=== PATIENT | female | born 1965 | race Caucasian/White ===

== ENCOUNTER 2019-02-07 15:54 | Observation (INO) | payer OTHER ==
[2019-02-07 17:34] LABS: Absolute Neutrophil Ct (ANC) 6.73 (1.4-6.9); BASOPHIL % 0.4 % (0.0-0.4); Basophil (Absolute #) 0.04 (0-0.4); Eosinophil (Absolute #) 0.29 (0-0.5); Hematocrit 46.2 % (35-47); Hemoglobin 15.3 gm/dl (12.0-16.0); Lymphocytes % 19.5 % (24.0-44.0); Mean Cell Volume 96.9 fl (78-100); Mean Corpuscular Hemoglobin 32.1 pg (26-32); Mean Corpuscular Hgb Concent. 33.1 g/dl (32-36); Mean Platelet Volume 9.4 fl (6-9.5); Monocytes % 8.2 % (0.0-12.0); Neutrophil % 68.9 % (36.0-66.0); Platelet Count 421 K/mm3 (150-450); Red Blood Count 4.77 M/mm3 (4.1-5.4); Red Cell Distribution Width 13.5 % (11.5-14.0); White Blood Count 9.8 K/mm3 (4.0-10.5)
[2019-02-07 17:47] LABS: ALBUMIN 4.7 g/dL (3.5-5.0); ALKALINE PHOSPHATASE 67 U/L (38-126); ANION GAP 17.7 MEQ/L (5-15); BLOOD UREA NITROGEN 11 mg/dL (7-17); CHLORIDE 106 mmol/L (98-107); Calcium 10.1 mg/dL (8.4-10.2); Carbon Dioxide 22 mmol/L (22-30); Creatinine 1 0.61 mg/dL (0.52-1.04); Glucose 87 mg/dL (74-106); Potassium 3.8 mmol/L (3.5-5.1); SGOT/AST 34 U/L (14-36); SGPT/ALT 22 U/L (0-35); SODIUM 142 mmol/L (137-145); Total Protein 8.6 g/dL (6.3-8.2)
[2019-02-07] MEDS ORDERED: Sodium Chloride 0.9% 1000 ML 1,000 ML IV STA (17:54)
[2019-02-07] MEDS: Sodium Chloride 0.9% 1000 ML 1,000 ML IV SCH (18:06)
[2019-02-07] MEDS: Zithromax 500 MG/ 250 ML NaCl Premix 500 MG/250 ML IVPB IV SCH (18:06)
[2019-02-07] MEDS: ROCEPHIN 1 Gm-D5w 50 ml Bag** 1 G/50 ML IVPB IV SCH (18:07)
[2019-02-07] MEDS: DUONEB 0.5-3 MG/3 ml Neb IH PRN (19:12)
[2019-02-07] MEDS ORDERED: NON-FORMULARY ITEM PO SCH (22:00)
[2019-02-07] MEDS ORDERED: Topamax 25 MG PO SCH (22:00)
[2019-02-07] MEDS ORDERED: Singulair 10 MG PO SCH (22:00)
[2019-02-07] MEDS ORDERED: CLARITIN 10 MG PO SCH (22:00)
[2019-02-08] MEDS ORDERED: Sodium Chloride 0.9% 1000 ML 1,000 ML ONE (04:57)
[2019-02-08] MEDS: Sodium Chloride 0.9% 1000 ML 1,000 ML IV SCH (04:58)
[2019-02-08] MEDS ORDERED: Advair Hfa 115/21 Common canister IH SCH (07:00)
[2019-02-08] MEDS ORDERED: ULTRAM 50 MG PO PRN (07:49)
[2019-02-08] MEDS ORDERED: NON-FORMULARY ITEM (Buspirone Hcl [Buspar] 15 MG) PO PRN (07:49)
[2019-02-08] MEDS ORDERED: Zanaflex 4 MG PO PRN (07:49)
[2019-02-08] MEDS ORDERED: NON-FORMULARY ITEM (Naratriptan Hcl [Amerge] 2.5 MG) PO PRN (07:49)
[2019-02-08] MEDS ORDERED: NON-FORMULARY ITEM (Budesonide/Formoterol Fumarate [Symbicort 160-4.5 Mcg Inhaler] 6 GM) IH PRN (07:49)
[2019-02-08] MEDS ORDERED: BUSPAR 5 MG PO PRN (07:51)
[2019-02-08] MEDS ORDERED: PROVENTIL COMMON CANISTER IH PRN (07:53)
[2019-02-08] MEDS ORDERED: Ventolin Hfa MDI IH SCH (08:00)
[2019-02-08 08:15] VITALS: O2SAT 97
[2019-02-08] MEDS ORDERED: MEDICATION INTERVENTION MC SCH (08:15)
--- NOTE | 2019-02-08 08:45 | XRAY ---
Indication: Short of breath. Pneumonia. Comparison: July 02, 2011. PA/lateral chest again demonstrates normal heart and lungs. Bony thorax intact again with pectus excavatum deformity and mild double curvature scoliosis. No new/acute findings.
[2019-02-08 08:52] LABS: INFLUENZA A NEGATIVE (NEGATIVE)
[2019-02-08 08:53] LABS: INFLUENZA B NEGATIVE (NEGATIVE); RESPIRATORY SYNCTIAL VIRUS NEGATIVE (Negative)
[2019-02-08] MEDS ORDERED: Cymbalta 30 MG Capsule PO SCH (10:00)
[2019-02-08] MEDS: Zithromax 500 MG/ 250 ML NaCl Premix 500 MG/250 ML IVPB IV SCH (11:14)
[2019-02-08 11:57] VITALS: BP 113/64; PULSE 81
[2019-02-08] MEDS: DUONEB 0.5-3 MG/3 ml Neb IH PRN (12:12)
[2019-02-08] MEDS: ROCEPHIN 1 Gm-D5w 50 ml Bag** 1 G/50 ML IVPB IV SCH (12:32)
--- NOTE | 2019-02-08 13:00 | PCM.SSS ---
History of Present Illness - Chief Complaint Chief Complaint: tiredness and muscle aches for 3-4 days History of Present Illness: see attached H&P - Review of Systems Constitutional: No Fever, No Chills Eyes: No Symptoms Ears, Nose, & Throat: No Symptoms Respiratory: No Cough, No Short Of Breath Cardiac: No Chest Pain, No Edema, No Syncope Abdominal/Gastrointestinal: No Abdominal Pain, No Nausea, No Vomiting, No Diarrhea Genitourinary Symptoms: No Dysuria Musculoskeletal: No Back Pain, No Neck Pain Skin: No Rash Neurological: No Dizziness, No Focal Weakness, No Sensory Changes Psychological: No Symptoms Endocrine: No Symptoms Hematologic/Lymphatic: No Symptoms Immunological/Allergic: No Symptoms Medications & Allergies Home Medications: Home Medication List Albuterol Sulfate [Proventil Hfa] 6.7 gm IH Q4HPRN 12/20/13 [History Confirmed 02/07/19] Budesonide/Formoterol Fumarate [Symbicort 160-4.5 Mcg Inhaler] 6 gm IH BID PRN 12/20/13 [History Confirmed 02/07/19] Fexofenadine HCl [Surekha] 180 mg PO HS 12/20/13 [History Confirmed 02/07/19] Hydroxychloroquine Sulfate [Plaquenil] 200 mg PO HS 12/20/13 [History Confirmed 02/07/19] Montelukast Sodium [Singulair] 10 mg PO HS 12/20/13 [History Confirmed 02/07/19] Topiramate 25 mg [Topamax 25 MG] 75 mg PO HS 12/20/13 [History Confirmed 02/07/19] Buspirone HCl [Buspar] 15 mg PO TID PRN 02/07/19 [History Confirmed 02/07/19] Duloxetine HCl 30 mg [Cymbalta 30 MG Capsule] 60 mg PO DAILY 02/07/19 [ History Confirmed 02/07/19] Naratriptan HCl [Amerge] 2.5 mg PO DAILY PRN 02/07/19 [History Confirmed ] Tizanidine HCl 4 mg PO HS PRN 02/07/19 [History Confirmed 02/07/19] Tramadol HCl 50 mg [Ultram 50 mg] 50 mg PO TID PRN 02/07/19 [History Confirmed 02/07/19] Allergies/Adverse Reactions: Allergies Allergy/AdvReac Type Severity Reaction Status Date / Time hydrocodone bitartrate Allergy Verified 12/20/13 09:01 [From Vicodin] moxifloxacin HCl Allergy Verified 12/20/13 09:01 [From Avelox] - Past Medical History Past Medical History: Yes Neurological History: No Pertinent History Respiratory History: Asthma Pyscho-Social History: Depression Comment: rheumatism - Female History Are you now?: No - Past Surgical History Past Surgical History: Yes Female Surgical History: Section Other Surgical History: sinus, fibromyalgia, palyndronic arthritis - Social History Smoking Status: Never smoker Exposure to second hand smoke: No Alcohol: None Drug Use: none - Physical Exam Vital Signs: Vital Signs - 24 hr Temp Pulse Resp BP Pulse Ox 02/08/19 12:16 97 02/08/19 11:56 98.3 F 81 16 113/64 97 02/08/19 08:12 76 16 97 02/08/19 07:39 98.5 F 65 16 101/54 94 L 02/08/19 06:37 96 02/08/19 04:00 98.1 F 75 18 119/57 97 02/08/19 00:00 98.3 F 79 17 98/53 97 02/07/19 20:00 98.6 F 95 H 17 117/61 96 02/07/19 19:12 88 18 98 02/07/19 16:25 98.8 F 73 18 131/61 98 Oxygen-Last 24 hours O2 Percentage 3 Liters = 32% General Appearance: no apparent distress, alert Neurologic Exam: alert, oriented x 3, cooperative, normal mood/affect, nml cerebellar function, nml station & gait, sensation nml, No motor deficits Eye Exam: PERRL/EOMI, eyes nml inspection Ears, Nose, Throat Exam: normal ENT inspection, TMs normal, pharynx normal, moist mucous membranes Neck Exam: normal inspection, non-tender, supple, full range of motion Respiratory Exam: normal breath sounds, lungs clear, No respiratory distress Cardiovascular Exam: regular rate/rhythm, normal heart sounds, normal peripheral pulses Gastrointestinal/Abdomen Exam: soft, normal bowel sounds, No tenderness, No mass Back Exam: normal inspection, normal range of motion, No CVA tenderness, No vertebral tenderness Extremity Exam: normal inspection, normal range of motion, pelvis stable Skin Exam: normal color, warm, dry, No rash Lymphatic Exam: No adenopathy Results - Labs Lab/Micro Results: Lab Results-Last 24 Hours 02/07/19 02/07/19 02/08/19 Range/Units 17:10 17:10 08:10 WBC 9.8 (4.0-10.5) K/mm3 RBC 4.77 (4.1-5.4) M/mm3 Hgb 15.3 (12.0-16.0) gm/dl Hct 46.2 (35-47) % MCV 96.9 (78-100) fl MCH 32.1 H (26-32) pg MCHC 33.1 (32-36) g/dl RDW 13.5 (11.5-14.0) % Plt Count 421 (150-450) K/mm3 MPV 9.4 (6-9.5) fl Gran % 68.9 H (36.0-66.0) % Eos # (Auto) 0.29 (0-0.5) Absolute Lymphs (auto) 1.90 (1.0-4.6) Absolute Monos (auto) 0.80 (0.0-1.3) Lymphocytes % 19.5 L (24.0-44.0) % Monocytes % 8.2 (0.0-12.0) % Eosinophils % 3.0 (0.00-5.0) % Basophils % 0.4 (0.0-0.4) % Absolute Granulocytes 6.73 (1.4-6.9) Basophils # 0.04 (0-0.4) Sodium 142 (137-145) mmol/L Potassium 3.8 (3.5-5.1) mmol/L Chloride 106 (98-107) mmol/L Carbon Dioxide 22 (22-30) mmol/L Anion Gap 17.7 H (5-15) MEQ/L BUN 11 (7-17) mg/dL Creatinine 0.61 (0.52-1.04) mg/dL Estimated GFR > 60.0 ML/MIN Glucose 87 (74-106) mg/dL Calcium 10.1 (8.4-10.2) mg/dL Total Bilirubin 0.30 (0.2-1.3) mg/dL AST 34 (14-36) U/L ALT 22 (0-35) U/L Alkaline Phosphatase 67 (38-126) U/L Serum Total Protein 8.6 H (6.3-8.2) g/dL Albumin 4.7 (3.5-5.0) g/dL Influenza Type A Ag NEGATIVE (NEGATIVE) Influenza Type B Ag NEGATIVE (NEGATIVE) RSV (PCR) NEGATIVE (Negative) Microbiology 02/07/19 18:26 Gram Stain - Final Sputum - Expectorant - Radiology Impressions Radiology Exams & Impressions: Radiology Procedures Category Date Time Status CHEST 2 VIEWS (PA AND LAT) Routine Exams 02/07/19 18:08 Completed - Other Procedures and Tests Respiratory Therapy 02/07/19 19:06 Peak Expiratory Flow Rate DAILY 02/07/19 19:07 Respiratory Therapy Assessment DAILY Assessment/Plan (1) Bronchitis with bronchospasm Current Visit: Yes Status: Acute Code(s): J20.9 - ACUTE BRONCHITIS, UNSPECIFIED (2) Malaise and fatigue Current Visit: Yes Status: Acute Code(s): R53.81 - OTHER MALAISE; R53.83 - OTHER FATIGUE Hospital Summary - Hospital Course Hospital Course: Chief Complaint Diagnosis pneumonia Allergies Allergy/AdvReac Type Severity Reaction Status Date / Time hydrocodone bitartrate Allergy Verified 12/20/13 09:01 [From Vicodin] moxifloxacin HCl Allergy Verified 12/20/13 09:01 [From Avelox] Vital Signs (Last 24 hours) Temp Pulse Resp BP Pulse Ox 02/08/19 12:16 97 02/08/19 11:56 98.3 F 81 16 113/64 97 02/08/19 08:12 76 16 97 02/08/19 07:39 98.5 F 65 16 101/54 94 L 02/08/19 06:37 96 02/08/19 04:00 98.1 F 75 18 119/57 97 02/08/19 00:00 98.3 F 79 17 98/53 97 02/07/19 20:00 98.6 F 95 H 17 117/61 96 02/07/19 19:12 88 18 98 02/07/19 16:25 98.8 F 73 18 131/61 98 Home Medications Medication Instructions Recorded Confirmed Last Taken Type Buspirone HCl [Buspar] 15 mg PO TID PRN 02/07/19 02/07/19 Unknown History Duloxetine HCl 30 mg [Cymbalta 60 mg PO DAILY 02/07/19 02/07/19 02/07/19 History 30 MG Capsule] 60 Naratriptan HCl [Amerge] 2.5 mg PO DAILY PRN 02/07/19 02/07/19 Unknown History Tizanidine HCl 4 mg PO HS PRN 02/07/19 02/07/19 Unknown History Tramadol HCl 50 mg [Ultram 50 50 mg PO TID PRN 02/07/19 02/07/19 02/06/19 History mg] Current Medications Generic Name Dose Route Start Last Admin Trade Name Freq PRN Reason Stop Dose Admin Albuterol Sulfate 2 puff 02/08/19 07:53 Proventil Common Canister IH 03/10/19 07:52 Q4H PRN PRN ASTHMA Albuterol/Ipratropium 3 ml 02/07/19 19:11 02/08/19 12:12 Duoneb 0.5-3 Mg/3 Ml Neb IH 03/09/19 19:10 3 ml Q4HPRN PRN Administration SHORTNESS OF BREATH/WHEEZING Buspirone HCl 15 mg 02/08/19 07:51 Buspar 5 Mg PO 03/10/19 07:50 TID PRN PRN ANXIETY Duloxetine HCl 60 mg 02/08/19 10:00 02/08/19 11:14 Cymbalta 30 Mg Capsule PO 03/10/19 09:59 60 mg DAILY FREDI Administration Azithromycin 500 mg in 250 mls @ 250 mls/hr 02/07/19 18:00 02/08/19 11:14 Zithromax 500 Mg/ 250 Ml Nacl Premix IV 03/09/19 17:59 250 mls/hr Q24H10 FREDI Administration Ceftriaxone Sodium/Dextrose 1 g in 50 mls @ 100 mls/hr 02/07/19 18:00 12:32 Rocephin 1 Gm-D5w 50 Ml Bag IV 03/09/19 17:59 100 mls/hr Q24H10 FREDI Administration Sodium Chloride 1,000 mls @ 100 mls/hr 02/07/19 18:00 02/08/19 04:58 Sodium Chloride 0.9% 1000 Ml IV 03/09/19 17:59 100 mls/hr .Q10H FREDI Administration Loratadine 10 mg 02/07/19 22:00 02/08/19 00:18 Claritin 10 Mg PO 03/09/19 21:59 10 mg HS FREDI Administration Miscellaneous Information 1 each 02/08/19 08:15 Medication Intervention 03/10/19 08:14 .RN TO CHECK WITH PT FREDI Montelukast Sodium 10 mg 02/07/19 22:00 02/08/19 00:19 Singulair 10 Mg PO 03/09/19 21:59 10 mg HS FREDI Administration Patient Own Med : 0 each 02/08/19 22:00 Plaquenil 200 Mg PO 03/10/19 21:59 HS FREDI Fluticasone/Salmeterol 2 puff 02/08/19 07:00 02/08/19 08:07 Advair Hfa 115/21 Common Canister* IH 03/10/19 06:59 2 puff BIDRT FREDI Administration Tizanidine HCl 4 mg 02/08/19 07:49 Zanaflex 4 Mg PO 03/10/19 07:48 HS PRN PRN PAIN Topiramate 75 mg 02/08/19 22:00 Topamax 25 Mg PO 03/10/19 21:59 HS FREDI Tramadol HCl 50 mg 02/08/19 07:49 Ultram 50 Mg PO 03/10/19 07:48 TID PRN PRN PAIN Discontinued Medications Generic Name Dose Route Start Last Admin Trade Name Freq PRN Reason Stop Dose Admin Sodium Chloride 1,000 mls @ 999 mls/hr 02/07/19 17:54 02/07/19 18:06 Sodium Chloride 0.9% 1000 Ml IV 02/07/19 18:54 999 mls/hr .Q1H1M STA Administration Sodium Chloride Confirm 02/08/19 04:57 Sodium Chloride 0.9% 1000 Ml Administered 02/08/19 04:58 Dose 1,000 mls @ ud .ROUTE .STK-MED ONE Non-Formulary Medication 200 each 02/07/19 22:00 02/08/19 00:20 Non-Formulary Item PO 03/09/19 21:59 200 each HS FREDI Administration Topiramate 75 mg 02/07/19 22:00 02/08/19 00:20 Topamax 25 Mg PO 03/09/19 21:59 75 mg HS FREDI Administration Intake & Output (Last 24 hours) 02/06/19 02/07/19 02/08/19 02/09/19 11:59 11:59 11:59 11:59 Intake Total 4810 Output Total 1000 Balance 3810 Weight 58.9 kg Microbiology Results (Last 24 hours) 02/07/19 18:26 Sputum - Expectorant Gram Stain - Final 02/07/19 18:26 Sputum - Expectorant Sputum Culture - Pending 02/07/19 17:20 Blood Blood Culture Gram Stain - Pending 02/07/19 17:20 Blood Blood Culture - Pending 02/07/19 17:10 Blood Blood Culture Gram Stain - Pending 02/07/19 17:10 Blood Blood Culture - Pending Laboratory Results (Last 24 hours) 02/08/19 02/07/19 02/07/19 08:10 17:10 17:10 WBC 9.8 RBC 4.77 Hgb 15.3 Hct 46.2 MCV 96.9 MCH 32.1 H MCHC 33.1 RDW 13.5 Plt Count 421 MPV 9.4 Gran % 68.9 H Eos # (Auto) 0.29 Absolute Lymphs (auto) 1.90 Absolute Monos (auto) 0.80 Lymphocytes % 19.5 L Monocytes % 8.2 Eosinophils % 3.0 Basophils % 0.4 Absolute Granulocytes 6.73 Basophils # 0.04 Sodium 142 Potassium 3.8 Chloride 106 Carbon Dioxide 22 Anion Gap 17.7 H BUN 11 Creatinine 0.61 Estimated GFR > 60.0 Glucose 87 Calcium 10.1 Total Bilirubin 0.30 AST 34 ALT 22 Alkaline Phosphatase 67 Serum Total Protein 8.6 H Albumin 4.7 Influenza Type A Ag NEGATIVE Influenza Type B Ag NEGATIVE RSV (PCR) NEGATIVE Orders (Last 24 hours) Category Date Time Status Up as tolerated [Activity as Tolerated] TOLERATED Activity 02/07/19 17:[address] in Observation ROUTINE Care 02/07/19 17:53 Active Telemetry q6h Care 02/07/19 20:00 Active Regular Diet Diet 02/07/19 Dinner Active CHEST 2 VIEWS (PA AND LAT) Routine Exams 02/07/19 18:08 Completed BLOOD CULTURE Urgent Lab 02/07/19 17:20 Received CBC W DIFF Routine Lab 02/07/19 17:10 Completed CMP Routine Lab 02/07/19 17:10 Completed Flu & RSV [Respiratory Panel] Urgent Lab 02/08/19 08:10 Completed Sputum Culture [CULTURE,SPUTUM] Routine Lab 02/07/19 18:26 Results Albuterol Common Canister [Proventil Common Canister Med 02/08/19 07:53 Active ] 2 puff IH Q4H PRN PRN Albuterol/Ipratropium 3ml Neb* [DUONEB 0.5-3 MG/3 ml Med 02/07/19 19:11 Active Neb] 3 ml IH Q4HPRN PRN Azithromycin 500 mg/250 ml [Zithromax 500 MG/ 250 ML Med 02/07/19 18:00 Active NaCl Premix] 500 mg in 250 ml IV Q24H10 Buspirone HCl 5 mg [Buspar 5 mg] Med 02/08/19 07:51 Active 15 mg PO TID PRN PRN Ceftriaxone 1 GM/50 ML PREMIX* [ROCEPHIN 1 Gm-D5w 50 ml Med 02/07/19 18:00 Active Bag] 1 g in 50 ml IV Q24H10 Duloxetine HCl 30 mg [Cymbalta 30 MG Capsule] Med 02/08/19 10:00 Active 60 mg PO DAILY Fluticasone/Salmeterol 115/21 [Advair Hfa 115/21 Common Med 02/08/19 07:00 Active canister*] 2 puff IH BIDRT Loratadine 10 mg [Claritin 10 mg] Med 02/07/19 22:00 Active 10 mg PO HS Medication Intervention Med 02/08/19 08:15 Active 1 each MC .RN TO CHECK WITH PT Montelukast Sodium 10 mg [Singulair 10 MG] Med 02/07/19 22:00 Active 10 mg PO HS NaCl 0.9% 1000 ml [Sodium Chloride 0.9% 1000 ML] 1,000 Med 02/08/19 04:57 Discontinued ml .ROUTE UD NaCl 0.9% 1000 ml [Sodium Chloride 0.9% 1000 ML] 1,000 Med 02/07/19 18:00 Active ml IV 100 mls/hr NaCl 0.9% 1000 ml [Sodium Chloride 0.9% 1000 ML] 1,000 Med 02/07/19 17:54 Discontinued ml IV 999 mls/hr Non-Formulary Drug [Non-Formulary Item] Med 02/07/19 22:00 Discontinued 200 each PO HS Patient Own Med [Patient Own Medication] Med 02/08/19 22:00 Active 0 each PO HS Tizanidine HCl 4 mg [Zanaflex 4 MG] Med 02/08/19 07:49 Active 4 mg PO HS PRN PRN Topiramate 25 mg [Topamax 25 MG] Med 02/07/19 22:00 Discontinued 75 mg PO HS Topiramate 25 mg [Topamax 25 MG] Med 02/08/19 22:00 Ordered 75 mg PO HS Tramadol HCl 50 mg [Ultram 50 mg] Med 02/08/19 07:49 Active 50 mg PO TID PRN PRN Peak Expiratory Flow Rate DAILY RT 02/07/19 19:06 Active Pulse Oximetry .continuos RT 02/08/19 06:38 Active Respiratory Therapy Assessment DAILY RT 02/07/19 19:07 Active Patient Care Notes (Last 24 hours) 02/07/19 17:05 Nursing Note by Grisel Gaytan pt unsure of all home medications, to bring in a list for verification. compared pharmacy information with H&P from dr. ambrosio's office and noted discrepencies. will wait for to bring list. Initialized on 02/07/19 17:05 - END OF NOTE - Vitals & Intake/Output Vital Signs: Vital Signs Temperature 98.3 F 02/08/19 11:56 Pulse Rate 81 02/08/19 11:56 Respiratory Rate 16 02/08/19 11:56 Blood Pressure 113/64 02/08/19 11:56 O2 Sat by Pulse Oximetry 97 02/08/19 12:16 Oxygen-Last Documented O2 Percentage 3 Liters = 32% Intake & Output: Intake & Output 02/06/19 02/07/19 02/08/19 02/09/19 11:59 11:59 11:59 11:59 Intake Total 4810 Output Total 1000 Balance 3810 Weight 58.9 kg - Lab Result Diagrams: 02/07/19 17:10 02/07/19 17:10 Lab Results-Last 24 Hrs: Lab Results-Last 24 Hours 02/07/19 02/07/19 02/08/19 Range/Units 17:10 17:10 08:10 WBC 9.8 (4.0-10.5) K/mm3 RBC 4.77 (4.1-5.4) M/mm3 Hgb 15.3 (12.0-16.0) gm/dl Hct 46.2 (35-47) % MCV 96.9 (78-100) fl MCH 32.1 H (26-32) pg MCHC 33.1 (32-36) g/dl RDW 13.5 (11.5-14.0) % Plt Count 421 (150-450) K/mm3 MPV 9.4 (6-9.5) fl Gran % 68.9 H (36.0-66.0) % Eos # (Auto) 0.29 (0-0.5) Absolute Lymphs (auto) 1.90 (1.0-4.6) Absolute Monos (auto) 0.80 (0.0-1.3) Lymphocytes % 19.5 L (24.0-44.0) % Monocytes % 8.2 (0.0-12.0) % Eosinophils % 3.0 (0.00-5.0) % Basophils % 0.4 (0.0-0.4) % Absolute Granulocytes 6.73 (1.4-6.9) Basophils # 0.04 (0-0.4) Sodium 142 (137-145) mmol/L Potassium 3.8 (3.5-5.1) mmol/L Chloride 106 (98-107) mmol/L Carbon Dioxide 22 (22-30) mmol/L Anion Gap 17.7 H (5-15) MEQ/L BUN 11 (7-17) mg/dL Creatinine 0.61 (0.52-1.04) mg/dL Estimated GFR > 60.0 ML/MIN Glucose 87 (74-106) mg/dL Calcium 10.1 (8.4-10.2) mg/dL Total Bilirubin 0.30 (0.2-1.3) mg/dL AST 34 (14-36) U/L ALT 22 (0-35) U/L Alkaline Phosphatase 67 (38-126) U/L Serum Total Protein 8.6 H (6.3-8.2) g/dL Albumin 4.7 (3.5-5.0) g/dL Influenza Type A Ag NEGATIVE (NEGATIVE) Influenza Type B Ag NEGATIVE (NEGATIVE) RSV (PCR) NEGATIVE (Negative) Micro Results-Entire Visit: Microbiology 02/07/19 18:26 Gram Stain - Final Sputum - Expectorant - Radiology Exams Ordered Rad Exams-Entire Visit: Radiology Procedures Category Date Time Status CHEST 2 VIEWS (PA AND LAT) Routine Exams 02/07/19 18:08 Completed - Procedures and Test Procedures and Tests throughout Hospitalization: Therapy Orders & Screens 02/07/19 19:06 Peak Expiratory Flow Rate DAILY Comment: Reason For Exam: Diagnosis: pneumonia 02/07/19 19:07 Respiratory Therapy Assessment DAILY Comment: Diagnosis: pneumonia - Discharge Discharge Date: 02/08/19 Disposition: Home, Self-Care Condition: Stable Prescriptions: Continue Hydroxychloroquine Sulfate [Plaquenil] 200 mg PO HS Topiramate 25 mg [Topamax 25 MG] 75 mg PO HS Fexofenadine HCl [Surekha] 180 mg PO HS Budesonide/Formoterol Fumarate [Symbicort 160-4.5 Mcg Inhaler] 6 gm IH BID PRN PRN Reason: shortness of breath Montelukast Sodium [Singulair] 10 mg PO HS Albuterol Sulfate [Proventil Hfa] 6.7 gm IH Q4HPRN Duloxetine HCl 30 mg [Cymbalta 30 MG Capsule] 60 mg PO DAILY Buspirone HCl [Buspar] 15 mg PO TID PRN PRN Reason: Anxiety Tramadol HCl 50 mg [Ultram 50 mg] 50 mg PO TID PRN PRN Reason: Pain Naratriptan HCl [Amerge] 2.5 mg PO DAILY PRN PRN Reason: Pain Tizanidine HCl 4 mg PO HS PRN PRN Reason: Pain Follow up with: ESHA AMBROSIO MD [Primary Care Provider] - 1 Week
[2019-02-08] MEDS ORDERED: Topamax 25 MG PO SCH (22:00)
[2019-02-08] MEDS ORDERED: PATIENT OWN MEDICATION PO SCH (22:00)
== END 2019-02-08 14:20 | disposition home or self-care (01) ==
LOC: MED SURG 16:07
PROVIDERS: ADMIT General Practice; ATTEND General Practice
DX: J20.9 Acute bronchitis, unspecified (principal); R53.83 Other fatigue; Z79.899 Other long term (current) drug therapy
CPT/HCPCS: 36415; 71046; 80053; 85025; 87040; 87070; 87631; 94150; 94640; 94760; G0378; 94762; J0456; J0696; A9270-GY

== ENCOUNTER 2022-10-02 14:16 | Emergency (ER) | payer OTHER ==
--- NOTE | 2022-10-02 14:19 | ERPHSYRPT ---
- History of Present Illness Time Seen by Provider: 10/02/22 14:18 Source: patient Exam Limitations: no limitations Physician History: This is a 57-year-old white female patient of Dr. Ambrosio who diagnosed her with left side pneumonia earlier in the week and gave her a in office injection of Rocephin and steroid intramuscularly followed by outpatient prescription of d oxycycline. No chest x-ray was ordered. Patient's complaint today is weakness, decreased appetite, coughing and headache. The headache is different than her migraine headaches and worse despite using tramadol and 2 extra strength Tylenol. Patient has a history of COPD as well. Timing/Duration: day(s) (Several days) Severity: moderate Associated Symptoms: nausea, cough, headaches, loss of appetite, weakness, No vomiting, No abdominal pain, No shortness of breath, No chest pain, No fever Allergies/Adverse Reactions: cephalexin [From Keflex] Allergy (Verified 10/02/22 15:02) hydrocodone bitartrate [From Vicodin] Allergy (Verified 12/20/13 09:01) moxifloxacin HCl [From Avelox] Allergy (Verified 12/20/13 09:01) Home Medications: Albuterol Sulfate [Proventil Hfa] 6.7 gm IH Q4HPRN 12/20/13 [History] Budesonide/Formoterol Fumarate [Symbicort 160-4.5 Mcg Inhaler] 6 gm IH BID PRN 12/20/13 [History] Montelukast Sodium [Singulair] 10 mg PO HS 12/20/13 [History] Topiramate 25 mg [Topamax 25 MG] 50 mg PO HS 12/20/13 [History] Buspirone HCl [Buspar] 15 mg PO TID PRN 02/07/19 [History] Duloxetine HCl 30 mg [Cymbalta 30 MG Capsule] 60 mg PO DAILY 02/07/19 [History] Naratriptan HCl [Amerge] 2.5 mg PO DAILY PRN 02/07/19 [History] Tizanidine HCl 4 mg PO HS PRN 02/07/19 [History] Tramadol HCl 50 mg [Ultram 50 mg] 25 mg PO TID PRN 02/07/19 [History] Cetirizine HCl [Zyrtec] 10 mg PO DAILY 10/02/22 [History] Galcanezumab-Gnlm [Emgality Syringe] 120 mg SQ UD 10/02/22 [History] Hx Tetanus, Diphtheria Vaccination/Date Given: Yes Hx Influenza Vaccination/Date Given: Yes Hx Pneumococcal Vaccination/Date Given: No Travel Risk - International Travel Have you traveled outside of the country in past 3 weeks: No - Coronavirus Screening Are you exhibiting any of the following symptoms?: Yes Symptoms: Cough: New Onset, Shortness of Breath, Headaches/Body Aches/Fatigue Close contact with a COVID-19 positive Pt in past 14-21 Days: No - Review of Systems Constitutional: Weakness Eyes: No Symptoms Ears, Nose, & Throat: No Symptoms Respiratory: Cough Cardiac: No Symptoms Abdominal/Gastrointestinal: Nausea, No Abdominal Pain, No Vomiting, No Diarrhea, No Constipation Genitourinary Symptoms: No Symptoms Musculoskeletal: No Symptoms Skin: No Symptoms Neurological: Headache Psychological: No Symptoms Endocrine: No Symptoms Hematologic/Lymphatic: No Symptoms Immunological/Allergic: No Symptoms All Other Systems: Reviewed and Negative - Past Medical History Pertinent Past Medical History: Yes Neurological History: No Pertinent History Respiratory History: Asthma Psycho-Social History: Depression Other Medical History: rheumatism - Past Surgical History Past Surgical History: Yes Female Surgical History: Section Other Surgical History: sinus, fibromyalgia, palyndronic arthritis - Social History Smoking Status: Never smoker Exposure to second hand smoke: No Drug Use: none Patient Lives Alone: No - Nursing Vital Signs Nursing Vital Signs: Initial Vital Signs Temperature 98.1 F 10/02/22 14:40 Pulse Rate 81 10/02/22 14:40 Blood Pressure 140/80 10/02/22 14:40 O2 Sat by Pulse Oximetry 96 10/02/22 14:40 Pain Scale Pain Intensity 3 - Physical Exam General Appearance: mild distress, alert, anxiety Eye Exam: PERRL/EOMI, eyes nml inspection Ears, Nose, Throat Exam: normal ENT inspection, moist mucous membranes Neck Exam: normal inspection, non-tender, supple, full range of motion Respiratory Exam: rhonchi (Left side), No chest tenderness, No respiratory distress Cardiovascular Exam: regular rate/rhythm, normal heart sounds, normal peripheral pulses Gastrointestinal/Abdomen Exam: soft, normal bowel sounds, No tenderness Pelvic Exam: not done Rectal Exam: not done Back Exam: normal inspection, normal range of motion, No CVA tenderness, No vertebral tenderness Extremity Exam: normal inspection, normal range of motion, pelvis stable Neurologic Exam: alert, oriented x 3, cooperative, systems requirements planner II-XII nml as tested, nor mal mood/affect, nml cerebellar function, nml station & gait, sensation nml Skin Exam: normal color, warm, dry Lymphatic Exam: No adenopathy SpO2 Interpretation: normal O2 Delivery: Room Air - Course Nursing assessment & vital signs reviewed: Yes EKG Interpreted by Me: RATE (81), Sinus Rhythm, NORMAL AXIS, NORMAL INTERVALS, NORMAL QRS, NORMAL ST-T, Other (No acute ischemic changes on today's twelve-lead EKG.) Ordered Tests: Active Orders 24 hr Category Date Time Status Automation Tech STAT Care 10/02/22 15:02 Active EKG-ER Only STAT Care 10/02/22 15:01 Active IV Insertion STAT Care 10/02/22 15:01 Active Pulse Oximetry (ED) STAT Care 10/02/22 15:01 Active CHEST WITHOUT CONTRAST [CT] Stat Exams 10/02/22 16:04 Taken HEAD WITHOUT CONTRAST [CT] Stat Exams 10/02/22 15:01 Completed BLOOD CULTURE Stat Lab 10/02/22 15:25 Received CBC W DIFF Stat Lab 10/02/22 15:01 Completed CMP Stat Lab 10/02/22 15:15 Completed D-DIMER QUANTITATIVE Stat Lab 10/02/22 15:15 Completed Lactic Acid Stat Lab 10/02/22 15:10 Completed MONO SCREEN Stat Lab 10/02/22 15:15 Completed NT PRO BNPII Stat Lab 10/02/22 15:15 Completed PROTIME WITH INR Stat Lab 10/02/22 15:15 Completed TROPONIN Q4H Lab 10/02/22 15:15 Completed TROPONIN Q4H Lab 10/02/22 19:15 Ordered TROPONIN Q4H Lab 10/02/22 23:15 Ordered UA W/RFX UR CULTURE Stat Lab 10/02/22 15:08 Completed Medication Summary Discontinued Medications Generic Name Dose Route Start Last Admin Trade Name Freq PRN Reason Stop Dose Admin Hydromorphone HCl 1 mg 10/02/22 15:02 10/02/22 15:27 Hydromorphone 1 Mg/1ml Inj IV 10/02/22 15:03 1 mg STAT ONE Administration Hydromorphone HCl Confirm 10/02/22 15:25 Hydromorphone 1 Mg/1ml Inj Administered 10/02/22 15:26 Dose 1 mg .ROUTE .STK-MED ONE Sodium Chloride 1,000 mls @ 999 mls/hr 10/02/22 15:01 10/02/22 16:42 Sodium Chloride 0.9% 1000 Ml IV 10/02/22 16:01 Infused .Q1H1M STA Infusion Sodium Chloride Confirm 10/02/22 15:25 Sodium Chloride 0.9% 1000 Ml Administered 10/02/22 15:26 Dose 1,000 mls @ ud .ROUTE .STK-MED ONE Ondansetron HCl 4 mg 10/02/22 15:01 10/02/22 15:27 Ondansetron Hcl 4 Mg/2 Ml Vial IV 10/02/22 15:02 4 mg STAT STA Administration Ondansetron HCl Confirm 10/02/22 15:24 Ondansetron Hcl 4 Mg/2 Ml Vial Administered 10/02/22 15:25 Dose 4 mg .ROUTE .STK-MED ONE Lab/Rad Data: Laboratory Result Diagrams 10/02/22 15:01 10/02/22 15:15 Laboratory Results 10/02/22 10/02/22 10/02/22 Range/Units 15:15 15:15 15:15 WBC (4.0-10.5) x10^3/uL RBC (4.1-5.4) x10^6/uL Hgb (12.0-16.0) g/dL Hct (35-47) % MCV (78-100) fL MCH (26-32) pg MCHC (32-36) g/dL RDW (11.5-14.0) % Plt Count (150-450) x10^3/uL MPV (7.5-11.0) fL Gran % (36.0-66.0) % Immature Gran % (Auto) (0.00-0.4) % Nucleat RBC Rel Count (0.00-0.1) % Eos # (Auto) (0-0.5) x10^3/uL Immature Gran # (Auto) (0.00-0.03) x10^3u/L Absolute Lymphs (auto) (1.0-4.6) x10^3/uL Absolute Monos (auto) (0.0-1.3) x10^3/uL Absolute Nucleated RBC (0.00-0.01) x10^3u/L Lymphocytes % (24.0-44.0) % Monocytes % (0.0-12.0) % Eosinophils % (0.00-5.0) % Basophils % (0.0-0.4) % Absolute Granulocytes (1.4-6.9) x10^3/uL Basophils # (0-0.4) x10^3/uL PT (9.4-12.5) SECONDS INR (0.8-3.0) D-Dimer (0.0-0.50) mg/L Sodium (137-145) mmol/L Potassium (3.5-5.1) mmol/L Chloride (98-107) mmol/L Carbon Dioxide (22-30) mmol/L Anion Gap (5-15) MEQ/L BUN (7-17) mg/dL Creatinine (0.52-1.04) mg/dL Estimated GFR ML/MIN Glucose (74-106) mg/dL Lactic Acid (0.4-2.0) Calcium (8.4-10.2) mg/dL Total Bilirubin (0.2-1.3) mg/dL AST (14-36) U/L ALT (0-35) U/L Alkaline Phosphatase (38-126) U/L Troponin I < 0.012 (0.000-0.034) ng/mL NT-Pro-B Natriuret Pep (<300) pg/mL Serum Total Protein (6.3-8.2) g/dL Albumin (3.5-5.0) g/dL Urine Color (Yellow) Urine Appearance (Clear) Urine pH (4.6-8.0) Ur Specific Brunson (1.005-1.030) Urine Protein (Negative) Urine Glucose (UA) (Negative) mg/dL Urine Ketones (Negative) Urine Blood (Negative) Urine Nitrite (Negative) Urine Bilirubin (Negative) Urine Urobilinogen (0.2) mg/dL Ur Leukocyte Esterase (Negative) U Hyaline Cast (Auto) (0-2) /LPF Urine Microscopic RBC (0-5) /HPF Urine Microscopic WBC (0-5) /HPF Ur Epithelial Cells (None Seen) /HPF Urine Bacteria (None Seen) /HPF Urine Culture Reflexed (NO) Monoscreen NEGATIVE (NEGATIVE) Influenza Type A Ag NEGATIVE (NEGATIVE) Influenza Type B Ag NEGATIVE (NEGATIVE) RSV (PCR) NEGATIVE (NEGATIVE) SARS-CoV-2 (PCR) NEGATIVE (NEGATIVE) Group A Strep Antibody NOT DETECTED (NEGATIVE) 10/02/22 10/02/22 10/02/22 Range/Units 15:15 15:15 15:10 WBC (4.0-10.5) x10^3/uL RBC (4.1-5.4) x10^6/uL Hgb (12.0-16.0) g/dL Hct (35-47) % MCV (78-100) fL MCH (26-32) pg MCHC (32-36) g/dL RDW (11.5-14.0) % Plt Count (150-450) x10^3/uL MPV (7.5-11.0) fL Gran % (36.0-66.0) % Immature Gran % (Auto) (0.00-0.4) % Nucleat RBC Rel Count (0.00-0.1) % Eos # (Auto) (0-0.5) x10^3/uL Immature Gran # (Auto) (0.00-0.03) x10^3u/L Absolute Lymphs (auto) (1.0-4.6) x10^3/uL Absolute Monos (auto) (0.0-1.3) x10^3/uL Absolute Nucleated RBC (0.00-0.01) x10^3u/L Lymphocytes % (24.0-44.0) % Monocytes % (0.0-12.0) % Eosinophils % (0.00-5.0) % Basophils % (0.0-0.4) % Absolute Granulocytes (1.4-6.9) x10^3/uL Basophils # (0-0.4) x10^3/uL PT 10.1 (9.4-12.5) SECONDS INR 0.92 (0.8-3.0) D-Dimer 0.27 (0.0-0.50) mg/L Sodium 141 (137-145) mmol/L Potassium 3.9 (3.5-5.1) mmol/L Chloride 102 (98-107) mmol/L Carbon Dioxide 29 (22-30) mmol/L Anion Gap 13.6 (5-15) MEQ/L BUN 19 H (7-17) mg/dL Creatinine 0.70 (0.52-1.04) mg/dL Estimated GFR > 60.0 ML/MIN Glucose 88 (74-106) mg/dL Lactic Acid 1.2 (0.4-2.0) Calcium 9.1 (8.4-10.2) mg/dL Total Bilirubin 0.20 (0.2-1.3) mg/dL AST 36 (14-36) U/L ALT 77 H (0-35) U/L Alkaline Phosphatase 115 (38-126) U/L Troponin I (0.000-0.034) ng/mL NT-Pro-B Natriuret Pep 133 (<300) pg/mL Serum Total Protein 7.4 (6.3-8.2) g/dL Albumin 4.2 (3.5-5.0) g/dL Urine Color (Yellow) Urine Appearance (Clear) Urine pH (4.6-8.0) Ur Specific Brunson (1.005-1.030) Urine Protein (Negative) Urine Glucose (UA) (Negative) mg/dL Urine Ketones (Negative) Urine Blood (Negative) Urine Nitrite (Negative) Urine Bilirubin (Negative) Urine Urobilinogen (0.2) mg/dL Ur Leukocyte Esterase (Negative) U Hyaline Cast (Auto) (0-2) /LPF Urine Microscopic RBC (0-5) /HPF Urine Microscopic WBC (0-5) /HPF Ur Epithelial Cells (None Seen) /HPF Urine Bacteria (None Seen) /HPF Urine Culture Reflexed (NO) Monoscreen (NEGATIVE) Influenza Type A Ag (NEGATIVE) Influenza Type B Ag (NEGATIVE) RSV (PCR) (NEGATIVE) SARS-CoV-2 (PCR) (NEGATIVE) Group A Strep Antibody (NEGATIVE) 10/02/22 10/02/22 Range/Units 15:08 15:01 WBC 8.6 (4.0-10.5) x10^3/uL RBC 4.47 (4.1-5.4) x10^6/uL Hgb 13.7 (12.0-16.0) g/dL Hct 42.8 (35-47) % MCV 95.7 (78-100) fL MCH 30.6 (26-32) pg MCHC 32.0 (32-36) g/dL RDW 12.6 (11.5-14.0) % Plt Count 443 (150-450) x10^3/uL MPV 9.3 (7.5-11.0) fL Gran % 62.7 (36.0-66.0) % Immature Gran % (Auto) 0.5 H (0.00-0.4) % Nucleat RBC Rel Count 0.0 (0.00-0.1) % Eos # (Auto) 0.20 (0-0.5) x10^3/uL Immature Gran # (Auto) 0.04 H (0.00-0.03) x10^3u/L Absolute Lymphs (auto) 2.21 (1.0-4.6) x10^3/uL Absolute Monos (auto) 0.68 (0.0-1.3) x10^3/uL Absolute Nucleated RBC 0.00 (0.00-0.01) x10^3u/L Lymphocytes % 25.7 (24.0-44.0) % Monocytes % 7.9 (0.0-12.0) % Eosinophils % 2.3 (0.00-5.0) % Basophils % 0.9 (0.0-0.4) % Absolute Granulocytes 5.38 (1.4-6.9) x10^3/uL Basophils # 0.08 (0-0.4) x10^3/uL PT (9.4-12.5) SECONDS INR (0.8-3.0) D-Dimer (0.0-0.50) mg/L Sodium (137-145) mmol/L Potassium (3.5-5.1) mmol/L Chloride (98-107) mmol/L Carbon Dioxide (22-30) mmol/L Anion Gap (5-15) MEQ/L BUN (7-17) mg/dL Creatinine (0.52-1.04) mg/dL Estimated GFR ML/MIN Glucose (74-106) mg/dL Lactic Acid (0.4-2.0) Calcium (8.4-10.2) mg/dL Total Bilirubin (0.2-1.3) mg/dL AST (14-36) U/L ALT (0-35) U/L Alkaline Phosphatase (38-126) U/L Troponin I (0.000-0.034) ng/mL NT-Pro-B Natriuret Pep (<300) pg/mL Serum Total Protein (6.3-8.2) g/dL Albumin (3.5-5.0) g/dL Urine Color Yellow (Yellow) Urine Appearance Clear (Clear) Urine pH 6.0 (4.6-8.0) Ur Specific Brunson 1.010 (1.005-1.030) Urine Protein Negative (Negative) Urine Glucose (UA) Negative (Negative) mg/dL Urine Ketones Negative (Negative) Urine Blood Negative (Negative) Urine Nitrite Negative (Negative) Urine Bilirubin Negative (Negative) Urine Urobilinogen 0.2 (0.2) mg/dL Ur Leukocyte Esterase Negative (Negative) U Hyaline Cast (Auto) NONE SEEN (0-2) /LPF Urine Microscopic RBC 0-2 (0-5) /HPF Urine Microscopic WBC 0-2 (0-5) /HPF Ur Epithelial Cells None Seen (None Seen) /HPF Urine Bacteria None Seen (None Seen) /HPF Urine Culture Reflexed NO (NO) Monoscreen (NEGATIVE) Influenza Type A Ag (NEGATIVE) Influenza Type B Ag (NEGATIVE) RSV (PCR) (NEGATIVE) SARS-CoV-2 (PCR) (NEGATIVE) Group A Strep Antibody (NEGATIVE) - Progress Progress: improved, re-examined Progress Note: 10/02/22 16:03 CT scan of the head without contrast shows paranasal sinus disease without evidence of intracranial abnormality. 10/02/22 18:15 Patient was reexamined and she states her headache is much improved. CT scan of the chest without contrast shows no acute pulmonary process. This patient's medical issue is 1 of moderate complexity. The level of complexity and the work-up performed is based on review of the patient's past medical history, review of the patient's medication list, review of the patient's drug allergy list, review of the patient's history of present illness and physical findings on examination. Work-up includes CT scan of the head, CT scan of the chest without contrast, CBC, CMP, urinalysis, flu studies, mono studies, strep test, twelve-lead EKG, D-dimer and troponin level. The patient does appear to have sinusitis on CT scan of the head. This could account for headache and not feeling well. I do not feel the patient has viral meningitis I will discuss with them my impression. I do not feel the patient requires a lumbar puncture at this moment in time. My plan is to provide them with a prescription for a Z-Michael and sent remotely to her Pharmacy. If they want a lumbar puncture, we will need to call anesthesia and to have that performed. 10/02/22 18:31 Patient states she is feeling much better. Her work-up does not show any acute, emergent issue. Patient is still on the doxycycline and she will continue this antibiotic. She is only been on it for about 1 day. We will send a prescription to her pharmacy remotely for Percocet 5/325 which she has taken in the past per her report without any adverse reactions. She will return to the emergency department if symptoms worsen. She will call her primary care doctor's office on 10/05/2022 to make arrangements for follow-up appointment for further evaluation management. 10/02/22 18:35 Patient declines lumbar puncture at this time. Counseled pt/family regarding: lab results, diagnosis, need for follow-up, rad results Medical Desision Making - Independent Historian Additional History obtained from: Spouse - Diagnostic Testing Diagnostic test were ordered, analyzed, and reviewed by me: Yes Radiological Interpretation: Reviewed by me, Teleradiologist Report - Risk of complications The pt has a mod risk of morbidity or mortality based on: Need for prescription drug management - Departure Departure Disposition: Home Clinical Impression: Headache, Sinusitis, Weakness Condition: Stable Critical Care Time: No Referrals: ESHA AMBROSIO MD [Primary Care Provider] - Follow up/PCP as directed Additional Instructions: Drink plenty of fluids. Take your medication as prescribed. Follow-up with Dr. Ambrosio in his office by phone on 10/05/2022 to make arrangements for an appointment for further evaluation and management. Prescriptions: Oxycodone HCl/Acetaminophen [Percocet 5-325 mg Tablet] 1 each PO Q8H PRN PRN #6 tablet MDD 3 PRN Reason: Moderate To Severe Pain
[2022-10-02] MEDS ORDERED: Zofran 4 MG/2 ML VIAL IV STA (15:01)
[2022-10-02] MEDS ORDERED: Sodium Chloride 0.9% 1000 ML 1,000 ML IV STA (15:01)
[2022-10-02] MEDS ORDERED: Hydromorphone 1 mg/ml Injection IV ONE (15:02)
[2022-10-02] MEDS ORDERED: Zofran 4 MG/2 ML VIAL ONE (15:24)
[2022-10-02] MEDS ORDERED: Hydromorphone 1 mg/ml Injection ONE (15:25)
[2022-10-02] MEDS ORDERED: Sodium Chloride 0.9% 1000 ML 1,000 ML ONE (15:25)
[2022-10-02 15:39] LABS: Absolute Neutrophil Ct (ANC) 5.38 x10^3/uL (1.4-6.9); BASOPHIL % 0.9 % (0.0-0.4); Basophil (Absolute #) 0.08 x10^3/uL (0-0.4); Eosinophil % 2.3 % (0.00-5.0); Hematocrit 42.8 % (35-47); Hemoglobin 13.7 g/dL (12.0-16.0); IMMATURE GRAN # 0.04 x10^3u/L (0.00-0.03); IMMATURE GRAN % 0.5 % (0.00-0.4); Lymphocyte (Absolute #) 2.21 x10^3/uL (1.0-4.6); Lymphocytes % 25.7 % (24.0-44.0); Mean Cell Volume 95.7 fL (78-100); Mean Corpuscular Hemoglobin 30.6 pg (26-32); Mean Platelet Volume 9.3 fL (7.5-11.0); Monocyte (Absolute #) 0.68 x10^3/uL (0.0-1.3); Monocytes % 7.9 % (0.0-12.0); Neutrophil % 62.7 % (36.0-66.0); Platelet Count 443 x10^3/uL (150-450); Red Blood Count 4.47 x10^6/uL (4.1-5.4); Red Cell Distribution Width 12.6 % (11.5-14.0); White Blood Count 8.6 x10^3/uL (4.0-10.5)
[2022-10-02 15:40] LABS: Appearance Clear (Clear); Bilirubin Negative (Negative); Blood Negative (Negative); Glucose, Urine Negative (Negative); Ketones Negative (Negative); Leukocyte Esterase Negative (Negative); Nitrite Negative (Negative); Protein,Urine Dip Negative (Negative); Urobilinogen 0.2 mg/dL (0.2)
[2022-10-02 15:48] LABS: Bacteria None Seen /HPF (None Seen); Epithelial Cells None Seen /HPF (None Seen); Hyaline Casts NONE SEEN /LPF (0-2); RBC 0-2 /HPF (0-5); WBC 0-2 /HPF (0-5)
[2022-10-02 15:50] LABS: ADD URINE CULTURE? NO (NO)
[2022-10-02 15:55] LABS: D-DIMER QUANTITATIVE 0.27 mg/L (0.0-0.50); INR 0.92 (0.8-3.0); PROTIME 10.1 SECONDS (9.4-12.5)
--- NOTE | 2022-10-02 16:00 | XRAY ---
Indication: Worst headache. Multiple contiguous axial images obtained through the head without contrast. Comparison: None Normal appearing brain parenchyma, ventricles, and bony calvarium for patient's age. Mild mucosal thickening both maxillary sinuses with small fluid leveling. Mastoid air cells are clear. Impression: Paranasal sinus disease. Remaining CT head without contrast exam is normal.
[2022-10-02 16:04] LABS: Group A Strep NOT DETECTED (NEGATIVE)
[2022-10-02 16:08] LABS: ALBUMIN 4.2 g/dL (3.5-5.0); ALKALINE PHOSPHATASE 115 U/L (38-126); ANION GAP 13.6 MEQ/L (5-15); BLOOD UREA NITROGEN 19 mg/dL (7-17); CHLORIDE 102 mmol/L (98-107); Calcium 9.1 mg/dL (8.4-10.2); Carbon Dioxide 29 mmol/L (22-30); EST GLOMERULAR FILTRATION RATE > 60.0 ML/MIN; Glucose 88 mg/dL (74-106); NT PRO BNPII 133 pg/mL (<300); Potassium 3.9 mmol/L (3.5-5.1); SGOT/AST 36 U/L (14-36); SGPT/ALT 77 U/L (0-35); SODIUM 141 mmol/L (137-145); Total Protein 7.4 g/dL (6.3-8.2)
[2022-10-02 16:15] LABS: INFLUENZA A NEGATIVE (NEGATIVE); INFLUENZA B NEGATIVE (NEGATIVE); RESPIRATORY SYNCTIAL VIRUS NEGATIVE (NEGATIVE); SARS-CoV-2 Xpert Express NEGATIVE (NEGATIVE)
[2022-10-02 18:07] VITALS: BP 132/75; PULSE 66; O2SAT 98
--- NOTE | 2022-10-02 22:40 | XRAY ---
Indication: Cough. Pneumonia. Multiple contiguous axial images obtained through the chest without contrast. Comparison: None Lungs inflated and clear. Heart not enlarged. Aorta is normal in course and caliber. No pathologic mediastinal lymphadenopathy. Bony thorax intact with pectus excavatum deformity and bilateral breast implants. Right breast implant appears partially ruptured. Limited upper abdomen including adrenal glands are unremarkable. Impression: 1. Pectus excavatum deformity and partially ruptured right breast implant. 2. Remaining CT chest without contrast exam is negative.
== END 2022-10-02 18:53 | disposition home or self-care (01) ==
LOC: ED 14:16
DX: J32.9 Chronic sinusitis, unspecified (principal); R51.9 Headache, unspecified; R53.1 Weakness; R05.9 Cough, unspecified; Z79.891 Long term (current) use of opiate analgesic; Z79.899 Other long term (current) drug therapy
CPT/HCPCS: 0241U; 36415; 70450; 71250; 80053; 81001; 83605; 83880; 84484; 85025; 85379; 85610; 86308; 87040; 87070; 87651; 93005; 93041; 94760; 96360; 96374; 96375; 99284; J1170; J2405